=== PATIENT | female | born 1965 | race Caucasian/White ===

== ENCOUNTER 2024-04-08 07:09 | Observation (INO) ==
--- NOTE | 2024-03-09 16:08 | PAT Medication Instructions ---
Medication Instructions Date of Service March 09, 2024 Home Medications acetaminophen 325 mg tablet (Tylenol) 325 mg PO QID PRN multivitamin 1 tab PO DAILY DO NOT take the morning of surgery multivitamin 1 tab PO DAILY Take morning of surgery With a small sip of water, OTHERWISE NOTHING TO EAT OR DRINK AFTER MIDNIGHT: acetaminophen 325 mg tablet (Tylenol) 325 mg PO QID PRN(if needed) Take evening before surgery acetaminophen 325 mg tablet (Tylenol) 325 mg PO QID PRN(if needed) Other Notes If you have any questions please call us at [phone] or [phone] or [phone] or [phone]
--- NOTE | 2024-03-11 12:59 | Anesthesiology Consultation ---
Date of Service March 11, 2024 Assessment & Plan (1) Encounter for pre-operative examination: - Infectious disease screening: Per assessment on 03/11/24: No known recent infectious disease contacts or current infectious disease symptoms. - Outpatient joint assessment: Pt currently scheduled for inpatient pathway. If surgeon requests review for outpatient joint pathway, patient is an acceptable candidate for outpatient joint program from anesthesia standpoint pending surgeon's office assessment that patient is motivated, has good support and completes [facility] Day Joint Program preop requirements. - Patient acceptable risk for surgery pending upcoming PCP office visit note (Dr. Jimenez, appt 03/20). Chart Review Chart Review: Patient seen in Pre Admission Testing Teaching & Discussion Pre-Anesthesia Teaching/Discussion Notes: Instructed NPO after midnight before surgery,except medications with 15 cc of water. Medication instructions provided according to the PAT guidelines. History Surgery Operation Date: 04/08/24 08:55 Proposed Procedures p Right Total Knee Arthroplasty - Brodie Borden MD Height/Weight Height: 5 ft 3 in Weight: 99.7 kg Allergies Allergy/AdvReac Type Severity Reaction Status Date / Time Sulfa (Sulfonamide Allergy Unknown Fever, Verified 03/10/24 12:44 Antibiotics) hives, abnormal LFTs Medications Home Medications Medication Instructions Recorded Confirmed Last Taken acetaminophen 325 mg tablet 325 mg PO QID PRN Pain 03/06/24 03/06/24 Unknown (Tylenol) multivitamin 1 tab PO DAILY 03/06/24 03/06/24 Unknown Past Medical History Medical History (Updated 03/11/24 @ 16:03 by Bernadette Sethi) DJD (degenerative joint disease) of knee Obesity Osteoarthritis Overactive bladder Exercise / Class Metabolic Activity II 4-5 Yardwork/Stairs/Walk up hill Past Family History Family History Sister Diabetes Past Surgical History Surgical History History of arthroscopy R/L knees History of cholecystectomy History of colonoscopy History of esophagogastroduodenoscopy (EGD) History of hysterectomy History of repair of rotator cuff right History of surgery on right wrist History of tooth extraction History of total knee replacement left Past Anesthesia History No Hx of Anesthesia Complications and No Family Hx of Anesthesia Complications History of PONV No Hx of Motion Sickness and History of PONV (Remote) Social History Smoking Status: Never smoker Do You Dip or Chew Tobacco: No Hx Alcohol Use: Yes Alcohol type: beer alcohol intake frequency: holidays/special occasions only Hx Substance Use: No substance use type: does not use Review of Systems Patient denies chest pain, shortness of breath, dyspnea on exertion, fever, chills, cough, wheezing, palpitations. Physical Exam Vital Signs BP 116/77 P 77 TEMP 98.0 SP02 98%RA RESP 16 Physical Full cervical extension range of motion. Full TMJ range of motion. TMD >3.5 finger breaths Mallampati Score II Dentition: intact, + crowns Lungs: clear throughout to auscultation Cardiac: regular rate and rhythm, no murmurs noted Spine: normal Carotid arteries: negative bruit Extremities: no LE edema Lab Results Anesthesia Preop Results Results Anesthesia Widget: WBC 3.71 K/ul (4.8-10.8) L 03/11/24 Hgb 12.8 g/dl (12.0-16.0) 03/11/24 Hct 38.4 % (37.0-47.0) 03/11/24 Plt 230 K/uL (130-400) 03/11/24 Na 139 mmol/L (136-145) 03/11/24 K 3.8 mmol/L (3.5-5.1) 03/11/24 Cl 105 mmol/L (98-107) 03/11/24 CO2 29 mmol/L (21-32) 03/11/24 BUN 14 mg/dl (6-23) 03/11/24 Creat 1.20 mg/dl (0.6-1.2) 03/11/24 Glucose Level 110 mg/dl (70-99(Fasting)) H 03/11/24 PT 10.3 Seconds (9.0-12.0) 03/11/24 PTT 26 Seconds (21-31) 03/11/24 INR 0.9 (0.9-1.1) 03/11/24 Urine Color Yellow 03/11/24 Urine Appearance Clear (Clear) 03/11/24 Urine pH 5.5 (4.5-7.5) 03/11/24 Urine Specific [place] 1.022 (1.000-1.030) 03/11/24 Urine Protein Negative (Negative) 03/11/24 Urine Glucose (UA) Negative (Negative) 03/11/24 Urine Ketones Trace (Negative) H 03/11/24 Urine Blood Negative (Negative) 03/11/24 Urine Nitrite Negative (Negative) 03/11/24 Urine Bilirubin Negative (Negative) 03/11/24 Urine Urobilinogen Negative (Negative) 03/11/24 Urine Leukocyte Esterase Negative (Negative) 03/11/24 Blood Type O Positive 03/11/24 Antibody Screen NEGATIVE 03/11/24 Testing Electrocardiogram Date: 03/11/24 NSR at 79bpm. "Normal ECG" Chest X-Ray Date: 03/11/24 FINDINGS: Lung volumes are normal. Lungs are clear. There is no pneumothorax or pleural effusion. Cardiac size is normal. Mediastinal contours are normal. There is no evidence for pulmonary edema. IMPRESSION: No acute cardiopulmonary findings.
--- NOTE | 2024-04-06 19:32 | History & Physical Report ---
Date of Service April 06, 2024 Assessment & Plan (1) Osteoarthritis of right knee: Plan: Right knee osteoarthritis with failed conservative management. Radiographs do not show typical [id number] osteoarthritis but she did have previous arthroscopic surgery demonstrated grade 4 patellofemoral osteoarthritis. She has had extensive conservative management with multiple aspiration and injection of steroids and continues to have recurrent effusion and chronic pain. Patient had good success with similar condition on her left knee and has some mild chronic synovitis but good pain relief and function with a left knee replacement. Patient wants proceed with the right total knee replacement at this time. Osteoarthritis type: primary Qualified Code(s): M17.11 - Unilateral primary osteoarthritis, right knee (2) Knee effusion, right: History of Present Illness Primary Care Provider: Sridhar Jimenez DO Patient denies headaches, sweats, fevers, chills, double vision, blurred vision, cough, sore throat, dysphagia, chest pain, sob, wheezing, n/v/d/c, numbness, tingling, fatigue, urinary symptoms, mood disorders. ROS positive for irregular heartbeat, arthritis. Allergies Allergy/AdvReac Type Severity Reaction Status Date / Time Sulfa (Sulfonamide Allergy Unknown Fever, Verified 03/10/24 12:44 Antibiotics) hives, abnormal LFTs Home Medications Medication Instructions Recorded Confirmed Type acetaminophen 325 mg tablet 325 mg PO QID PRN Pain 03/06/24 03/06/24 History (Tylenol) multivitamin 1 tab PO DAILY 03/06/24 03/06/24 History Past Med/Surg History Problem List (Updated 04/06/24 @ 19:38 by Brodie Borden MD) Knee effusion, right Osteoarthritis of right knee Encounter for pre-operative examination DJD (degenerative joint disease) of knee (Acute) Medical History Obesity Osteoarthritis Overactive bladder DJD (degenerative joint disease) of knee Surgical History History of hysterectomy History of surgery on right wrist History of total knee replacement left History of arthroscopy R/L knees History of repair of rotator cuff right History of esophagogastroduodenoscopy (EGD) History of colonoscopy History of cholecystectomy History of tooth extraction Family History Sister Diabetes Social History Smoking Status: Never smoker Second Hand Exposure: No; Do You Dip or Chew Tobacco: No; Tobacco Cessation Education Requested by Patient: No Hx Alcohol Use: Yes Alcohol type: beer Hx Substance Use: No Preferred Language: Zambian Communication Ability: Effective Computer Trainer Required: No Beliefs That Will Affect Care: None Current Living Situation: Spouse Other Information That Helps Us Care for You: No Feels Safe at Home: Yes Safety Concerns: Feels Safe At This Time Assistive Devices: Contacts and Glasses Review of Systems All systems reviewed & are unremarkable except as noted in HPI & below Physical Exam Constitutional: WD/WN, vitals as above Respiratory: normal respiratory effort; no respiratory distress Cardiovascular: Rate/Rhythm: regular rate and regular rhythm Musculoskeletal: Right knee exam demonstrates a large knee effusion with significant patellofemoral crepitation no instability and 0 through 130 degrees range of motion with some mild valgus alignment of the knee. Left knee has a scar from total knee replacement with mild effusion neutral alignment good stability and no pain. Distal circulation sensorimotor exam intact. Skin: no rashes, warm and dry Neurologic: normal touch/pain/proprioception Psychiatric: A+Ox3, euthymic affect Results & Data Diagnostic Findings X-rays right knee demonstrate advanced patellofemoral osteoarthritis with moderately advanced tibiofemoral medial and lateral compartment osteoarthritis. [employer] left knee replacement.
[~2024-04-08 07:09] MED LIST: BUPIVACAINE 0.5 % 5 MG/1 ML PF 10ML VIAL ONE; ROPIVACAINE 0.5% 5 MG/ML 30 ML VIAL ONE
[2024-04-08] MEDS ORDERED: fentaNYL citrate PF 100 MCG/2 ML VIAL ONE (07:22)
[2024-04-08] MEDS ORDERED: MIDAZOLAM HCL 1 MG/ML 2ML VIAL ONE (07:23)
[2024-04-08] MEDS ORDERED: PROPOFOL IV EMULSION 10 MG/ML 20 ML VIAL IV ONE ×2 (07:25→11:44)
--- NOTE | 2024-04-08 07:28 | History & Physical Bridge Note ---
Date of Service April 08, 2024 History & Physical Bridge Note I have examined the patient, reviewed the History & Physical and in the interval since the performance of the History & Physical I have noted the following changes of clinical significance: no changes noted
[2024-04-08] MEDS: LR 500ML BOLUS, THEN 15ML/HR IV SCH (07:42)
[2024-04-08] MEDS: dexAMETHasone**PF** 10 MG/ML VIAL IV SCH (07:42)
[2024-04-08] MEDS: METOCLOPRAMIDE HCL 10 MG TABLET PO SCH (07:43)
[2024-04-08] MEDS: ACETAMINOPHEN 500 MG TAB PO SCH ×2 (07:43→14:10)
[2024-04-08] MEDS: FAMOTIDINE 20 MG TAB PO SCH (07:43)
[2024-04-08] MEDS: GABAPENTIN 600 MG DOSE PO SCH (07:43)
[2024-04-08] MEDS: LR 60ML/HR IV SCH (07:43)
[2024-04-08] MEDS ORDERED: ONDANSETRON INJ 2 MG/ML 2 ML VIAL IV PRN ×2 (08:17→13:47)
[2024-04-08] MEDS ORDERED: fentaNYL citrate PF 100 MCG/2 ML VIAL IV PRN (08:17)
[2024-04-08] MEDS ORDERED: ePHEDrine sulfate 50 MG/ML AMP IV PRN (08:17)
[2024-04-08] MEDS ORDERED: ATROPINE SULFATE 0.1 MG/ML 10ML SYR IV PRN (08:17)
[2024-04-08] MEDS: TRANEXAMIC ACID 1,000 MG **IV Pre-op IV SCH (09:33)
[2024-04-08] MEDS: ceFAZolin 2000MG 2,000 MG/15 ML SYR IV SCH ×2 (09:50→16:05)
[2024-04-08] MEDS ORDERED: ONDANSETRON INJ 2 MG/ML 2 ML VIAL ONE (10:17)
[2024-04-08] MEDS ORDERED: PHENYLEPHRINE 100MCG/ML 10ML SYR IV ONE (10:21)
[2024-04-08] MEDS: TRANEXAMIC ACID 1,000 MG **IV Intra-op IV SCH (11:21)
[2024-04-08] MEDS: ROPIV 0.5% 246mg, Ketorolac 30mg, EPINEPHrine 0.5mg in NSS INFIL SCH (11:22)
[2024-04-08] MEDS: ORTHO JOINT ANESTHETIC ONE (11:22)
--- NOTE | 2024-04-08 11:34 | Post Operative Brief Note ---
Immediate Post Op Note Date of Surgery April 08, 2024 Pre & Post Diagnosis Operation Date: 04/08/24 09:00 Pre-Op Diagnosis: Right Knee Osteoarthritis Post-Op Diagnosis: Right Knee Osteoarthritis I identified the patient and participated in the time-out.: Yes Procedure Operation Date: 04/08/24 09:00 Actual Procedures p Right Total Knee Arthroplasty(Right), jeimy and Acticoat superficial wound VAC application- Brodie Borden MD Surgeon Brodie Borden MD Remanufacturing Technician Juancarlos BELLA Estimated Blood Loss 5 Findings Consistent with Post-Op Diagnosis Specimens Bone cuts Drains Hemovac Drain Anesthesia Type MAC Spinal Regional Complications none Disposition Disposition: Recovery Room Overlapping Procedure I was present for: the critical portions of procedure.
--- NOTE | 2024-04-08 12:33 | XRay Report ---
XR knee RT 1 or 2V routine HISTORY: 59 years-old Female Surgical Post Op right knee arthroplasty COMPARISON: None TECHNIQUE: 2 views of the right knee FINDINGS: Total joint arthroplasty with patellar resurfacing. Anterior midline skin gayla with expected posto perative soft tissue swelling and deep tissue air with surgical drainage catheter. No acute fracture or unexpected opaque foreign bodies. IMPRESSION: Total joint arthroplasty with expected postoperative changes ACT 112: Negative or not required by law. The above report was generated using voice recognition software. It may contain grammatical, syntax o r spelling errors. Electronically signed by: Gabe Mckinley M.D. 04/08/2024 12:31 PM
--- NOTE | 2024-04-08 13:00 | Anesthesiology Progress Note ---
Date of Service April 08, 2024 Anesthesia Post Procedure Vital Signs Vital Signs: Temp Pulse Pulse Resp BP Pulse Ox O2 Del Method 04/08/24 12:10 36.7 C 89 16 89/59 L 100 Oxymask 04/08/24 07:33 36.4 C L 65 20 107/62 99 Room Air O2 Flow Rate 04/08/24 12:10 9 04/08/24 07:33 Notes Mental Status: alert / awake / arousable Patient Amnestic to Procedure: Yes Nausea / Vomiting: adequately controlled Pain: adequately controlled Airway Patency, RR, SpO2: stable & adequate BP & HR: stable & adequate Hydration State: stable & adequate Neuraxial Anesthesia: was administered and sensory block is resolving Anesthetic Complications: no major complications apparent
[2024-04-08] MEDS ORDERED: KETOROLAC TROMETHAMINE 15 MG/ML VIAL IV PRN (13:47)
[2024-04-08] MEDS ORDERED: MAGNESIUM HYDROXIDE SUSP 30 ML UDC PO PRN (13:47)
[2024-04-08] MEDS ORDERED: NALOXONE HCL 0.4 MG/1 ML VIAL/CARP IV PRN (13:47)
[2024-04-08] MEDS ORDERED: METOCLOPRAMIDE HCL INJ 5 MG/ML 2 ML VIAL IV PRN (13:47)
[2024-04-08] MEDS ORDERED: ALUMINUM/MAGNESIUM SUSP 30 ML UDC PO PRN (13:47)
[2024-04-08] MEDS ORDERED: HYDROmorphone INJ 0.5 MG/0.5 ML SYR IV PRN (13:47)
[2024-04-08] MEDS ORDERED: bisacodyL 10 MG SUPP PR PRN (13:47)
[2024-04-08] MEDS ORDERED: diphenhydrAMINE Capsule 25 MG CAP PO PRN (13:47)
--- OUTSIDE RECORDS SUMMARY | 2024-04-08 13:52 | External Medical Summary | Summary of Care ---
Author Name Unknown Organization [facility] Address [address] [place] [address] Phone [phone] Care Team Providers Care Manager Fixed Income Name Role Phone Sridhar Jimenez DO Primary Care Provider Encounter Details Date Type Department Care Team (Late st Contact Info) Description 03/02/2024 Orders Only Outcomes Research Department [address] [place] [address] Christy Jean CHRA [facility] Other*[id number] Allergies Active Allergy Reactions Criticality Noted Date Comments Sulfa Antibiotics 04/24/2011 documented as of this encounter (statuses as of 03/02/2024) Medications Medication Sig Dispensed Refills Start Date End Date Status Ciprofloxacin HCl 500 MG Oral Tablet (Cipro) Take 1 Tablet by mouth in the morning and 1 Tablet before bedtime. 8 Tablet 02/17/2024 Active documented as of this encounter (statuses as of 03/02/2024) Active Problems Problem Noted Date Diagnosed Date Primary osteoarthritis of right knee 02/28/2023 Generalized osteoarthritis 01/29/2020 Abdominal pain, right lower quadrant Other nonspecific abnormal finding Overview: abn CT enteroclysis Gastritis and gastroduodenitis H. pylori infection Arthropathy Palpitations documented as of this encounter (statuses as of 03/02/2024) Immunizations Name Administration Dates Next Due COVID-19 mRNA, LNP-s, No Pre serve, 2-Dose Series (Moderna) 09/16/2020,08/19/2020 COVID-19, mRNA, LNP-s, PF, B ooster, 100mcg/0.5mg (Moderna) 04/27/2021 documented as of this encounter Social History Tobacco Use Types Packs/Day Years Used Date Smoking Tobacco: Never Smokeless Tobacco: Never Alcohol Use Standard Drinks/Week Comments Yes 0 (1 standard drink = 0.6 oz pur e alcohol) occ Utilities Answer Date Recorded Do you have trouble paying y our heating, water, or electric bill? (Adult - for ages 18 years and over) Not on file 12/31/2023 Is your family able to pay t he heat, water, or electric bill? (Household - for ages 0-17 years) Not on file 12/31/2023 Does your family have access to good internet? (Household - for ages 0-17 years) Not on file 12/31/2023 Social Connections Answer Date Recorded How often do you feel lonely or isolated from those around you? (Adult - for ages 18 years and over) Not on file 12/31/2023 Sex and Gender Information Value Date Recorded Sex Assigned at Female 07/29/2022 6:19 PM EST Gender Identity Female 07/29/2022 6:19 PM EST Sexual Orientation Straight 07/29/2022 6: 19 PM EST Job Start Date Occupation Industry Not on file Not on file Not on file documented as of this encounter Plan of Treatment Upcoming Encounters Date Type Department Care Team (Late st Contact Info) Description 07/21/2024 11:00 AM EST Office Visit Urology, [facility] [address] [facility] [place] [address] Bam Jamison MD [address] [place] [address] Scheduled Orders Name Type Priority Associated Diagnoses Orde r Schedule MYCODE SUBSEQUENT ADULT Lab Routine [facility] Other*[id number] Every 6 Months for 2 Occurrences starting 03/02/2024 until 03/22/2025 Health Maintenance Due Date Last Done Comments Lipid Panel 1963 Depression Screening 1975 HIV Screening 1978 Hepatitis C Screening 1981 DTaP,Tdap,and Td Vaccines (1 - Tdap) 1982 Mammogram 2003 Cologuard 2008 Colonoscopy 2008 Colorectal Cancer Screening 2008 Fecal Occult Blood Test 2008 Sigmoidoscopy 2008 Zoster Vaccines (1 of 2) 2013 COVID-19 Vaccine (2022-2 4 season) 2023 04/27/2021, 09/16/2020, 08/19/2020 Influenza Vaccine (FLU shot) (#1) 2024 04/30/2023, 04/02/2018 HPV (Gardasil) Vaccine Aged Out No lo nger eligible based on patient's age to complete this topic Hepatitis B Vaccine Aged Out No longe r eligible based on patient's age to complete this topic MENINGOCOCCAL (MENACTRA/MENVEO) Aged Out No longer eligible b ased on patient's age to complete this topic Pneumococcal Vaccine: Pediatrics (0 to 5 Years) and At-Risk Patients (6 to 64 Years) Aged Out No longer eligible b ased on patient's age to complete this topic documented as of this encounter Medical Devices Not on filedocumented as of this encounter Visit Diagnoses Diagnosis [facility] Other*[id number] documented in this encounter Care Teams Manager Fixed Income Relationship Specialty Start Date End Date Sridhar Jimenez DO [address] [place] [address] PCP - General Family Medicine 09/29/19 documented as of this encounter
--- OUTSIDE RECORDS SUMMARY | 2024-04-08 13:52 | External Medical Summary | Summary of Care ---
Author Name Unknown Organization [facility] Address [address] [place] [address] Phone [phone] Care Team Providers Care Data Review Specialist Name Role Phone Deborah Arango DO Primary Care Provider Reason for Visit * Reason Comments Cystoscopy Encounter Details Date Type Department Care Team (Late st Contact Info) Description 02/17/2024 1:00 PM EDT Office Visit Urology, [facility] [address] [facility] [place] [address] Vannesa Onofre MD [address] [place] [address] Overactive bladder*; Urge incontinence of urine Allergies Active Allergy Reactions Criticality Noted Date Comments Sulfa Antibiotics 04/24/2011 documented as of this encounter (statuses as of 03/23/2024) Medications Medication Sig Dispensed Refills Start Date End Date Status Ciprofloxacin HCl 500 MG Oral Tablet (Cipro) Take 1 Tablet by mouth in the morning and 1 Tablet before bedtime. 8 Tablet 02/17/2024 Active Hospital, Clinic, or Other Facility Administered Medication Ordered Dose Route Frequency Start Date End Date Status ciprofloxacin (Cipro) tab 500 mgIndications:Overactive bladder,Urge incontinence of urine 500 mg OR ONCE 02/17/2024 02/17/2024 Ended botulinum toxin type a (Botox) inj 10 UnitsIndications:Overactive bladder,Urge incontinence of urine 10 Units IM ONCE 02/17/2024 02/18/2024 Ended botulinum toxin type a (Botox) 100 Units in sodium chloride 0.9 % 10 mL injIndications:Overactive bladder,Urge incontinence of urine 100 Units IM ONCE 02/25/2024 02/25/2024 Ended botulinum toxin type a (Botox) inj 10 UnitsIndications:Overactive bladder,Urge incontinence of urine 10 Units IM ONCE 03/18/2024 03/23/2024 Ended documented as of this encounter (statuses as of 03/23/2024) Active Problems Problem Noted Date Diagnosed Date Primary osteoarthritis of right knee 02/28/2023 Generalized osteoarthritis 01/29/2020 Abdominal pain, right lower quadrant Other nonspecific abnormal finding Overview: abn CT enteroclysis Gastritis and gastroduodenitis H. pylori infection Arthropathy Palpitations documented as of this encounter (statuses as of 03/23/2024) Immunizations Name Administration Dates Next Due COVID-19 [...] on file documented as of this encounter Progress Notes * Vannesa Onofre MD - 02/17/2024 1:11 PM EDT [id number] PCP: DEBORAH ARANGO [address] [place] [address] [phone] Alma Thurston is a 58 year old female, who presents for intravesical Botox injection. She notes mild urgency, worse with intake of certain fluids. Past notes reviewed. Good response to Botox so far. Urinary incontinence: Present for years. Presented to [facility] November 2021. Previous trials of Detrol, Ditropan, Enablex and Oxytrol. Failed VESIcare and Myrbetriq combination therapy. Denies significant history with urinary tract infection. Patient is using 1 ppd. Worse with alcohol intake. Little improvement with IC diet. Previous trial of pelvic floor PT, improved capacity. Botox injected June 2023, September 2023, Jan 2024. No current outpatient medications on file. No current facility-administered medications for this visit. Review of patient's allergies indicates: Allergen Reactions Sulfa Antibiotics Social History: Social History Tobacco Use Smoking status: Never Smokeless tobacco: Never Substance Use Topics Alcohol use: Yes Comment: occ Vaping/E-Cigarette Use Vaping/E-Cigarette Substances Vaping/E-Cigarette Devices Family History Problem Relation Name Age of Onset Hypertension Mother and hyperlipidemia Diabetes Father Cancer Brother stage 4 lymph nodes/lungs/brain Hypertension Sister Gastro-intestinal disorder Sister diverticulitis No Past Hx Daughter Past Surgical History: Procedure Laterality Date FOREARM/WRIST SURGERY NEC x 4 right wrist REMOVE GALLBLADDER TOTAL ABD HYSTERECTOMY W/WO REMOVAL OF TUBE(S) ovaries intact Past Medical History: Diagnosis Date Abdominal pain, right lower quadrant Arthropathy Diaphragmatic hernia Gastritis and gastroduodenitis H. pylori infection treated Other nonspecific abnormal finding abn CT enteroclysis Palpitations Patient Active Problem List Diagnosis Abdominal pain, right lower quadrant Other nonspecific abnormal finding Gastritis and gastroduodenitis H. pylori infection Arthropathy Palpitations Generalized osteoarthritis Primary osteoarthritis of right knee Female : (+) see HPI Cystoscopy Procedure Note: Patient was properly identified and appropriate consent was confirmed. Risks and benefits of the procedure were reviewed and the patient was prepped and draped in the standard fashion for the procedure. A well lubricated 16 Turkish flexible cystoscope was introduced through the meatus into the urethra. Urethra demonstrated no abnormalities. Bladder neck was visualized and bladder was entered. Sterile saline irrigation was used to distend the bladder which was noted to have no tumors, stones or mucosal abnormalities with grade 2 trabeculation. Bladder was completely inspected including retroflexion of the scope. Ureteral orifices were noted to be in the normal anatomic position bilaterally and effluxing clear urine. Botox was injected on the posterior wall taking care to avoid ureteral orifices. Four rows of 5 columns each, 0.5 mL for a total of 10 mL of sterile saline with 100 mg of Botox, minimal bleeding being present. After this was completed the cystoscope was removed. Patient tolerated the procedure well without complications or difficulties. Media Analytics Manager was present for entire procedure. Perioperative Cipro was provided. Impression/Plan: 58-year-old female with overactive bladder, improved with Botox. We are pleased with the patient's results. Will cover with short course of ciprofloxacin. The patient for symptom check in 4 months. Hopefully, we can space out injections further depending on symptom response in the future. Vannesa Onofre MD 1:11 PM 02/17/2024 documented in this encounter Nursing Notes * Beverly Boone LPN - 02/17/2024 1:08 PM EDT Patient presents for botox. Consent signed. Patient's skin was prepped with hibiclens, and 2% lidocaine jelly was inserted into urethra for cystoscopy. Patient tolerated well. documented in this encounter Miscellaneous Notes * Addendum Note - Vannesa Onofre MD - 03/18/2024 7:15 AM EDTAddended by: VANNESA ONOFRE on: 03/18/2024 07:15 AM Modules accepted: Orders * Addendum Note - Vannesa Onofre MD - 02/25/2024 7:47 AM EDTAddended by: VANNESA ONOFRE on: 02/25/2024 07:47 AM Modules accepted: Orders * Addendum Note - Beverly Boone LPN - 02/17/2024 2:10 PM EDTAddended by: BEVERLY BOONE on: 02/17/2024 02:10 PM Modules accepted: Orders documented in this encounter Plan of Treatment Upcoming Encounters Date Type Department Care Team (Late st Contact Info) Description 07/21/2024 11:00 AM EST Office Visit Urology, [facility] [address] [facility] [place] [address] Vannesa Onofre MD [address] [place] [address] Scheduled Orders Name Type Priority Associated Diagnoses Orde r Schedule CYSTOURETHROSCOPY, INJ FOR CHEMODENERVATION Procedures Routine Overactive bladder Urge incontinence of urine Ordered: 02/17/2024 Health Maintenance Due Date Last Done Comments Lipid Panel 1963 Depression Screening 1975 HIV Screening 1978 Hepatitis C Screening 1981 DTap/Tdap Vaccines (1 - Tdap) 1982 Mammogram 2003 Cologuard 2008 Colonoscopy 2008 Colorectal Cancer Screening 2008 Fecal Occult Blood Test 2008 Sigmoidoscopy 2008 Zoster Vaccines (1 of 2) 2013 COVID-19 Vaccine (4 - 2022-2 4 season) 2024 04/27/2021, 09/16/2020, 08/19/2020 Influenza Vaccine (FLU shot) [...] as of this encounter Visit Diagnoses Diagnosis Overactive bladder- Primary Hypertonicity of bladder Urge incontinence of urine Urge incontinence documented in this encounter Administered Medications Inactive Administered Medications - up to 3 most recent administrations Medication Order MAR Action Action Date Dose Rate Site botulinum toxin type a (Botox) inj 10 Units 10 Units, Intramuscular, ONCE, On 03/18/24 at 0745, For 1 dose, Prior to injection, reconstitute botox vial with PF sodium chloride 0.9% to desired concentration. Given 03/23/2024 4:14 PM EDT 10 Units Other-Specify ciprofloxacin (Cipro) tab 500 mg 500 mg, Oral, ONCE, On 02/17/24 at 1400, For 1 dose, Hold antacids and iron for 3-4 hours before and after administration. Given 02/17/2024 2:10 PM EDT 500 mg documented in this encounter Care Teams Data Review Specialist Relationship Specialty Start Date End Date Deborah Arango DO [address] [place] [id number] PCP - General Family Medicine 09/29/19 documented as of this encounter
--- OUTSIDE RECORDS SUMMARY | 2024-04-08 13:52 | External Medical Summary | Summary of Care ---
Author Name Unknown Organization [facility] Address [address] [place] [address] Phone [phone] Care Team Providers Care Solvent Process Extractor Operator Name Role Phone Deborah Arango DO Primary Care Provider Reason for Visit * Reason Comments Cystoscopy Encounter Details Date Type Department Care Team (Late st Contact Info) Description 02/17/2024 1:00 PM EDT Office Visit Urology, [facility] 132 [facility] [place] [address] Vannesa Onofre MD [address] [place] [address] [...] 100 Units IM ONCE 02/25/2024 02/25/2024 Ended documented as of this encounter (statuses [...] Onofre MD - 02/17/2024 1:11 PM EDT [id number] PCP: DEBORAH ARANGO [address] [place] [address] Alma Thurston is a 58 year old female, who presents for intravesical Botox injection. She notes mild urgency, worse with intake of certain fluids. Past notes reviewed. Good response to Botox so far. Urinary incontinence: Present for years. Presented to [facility] November 2021. Previous trials of Detrol, [...] for the procedure. A well lubricated 16 [place] African flexible cystoscope was introduced through the meatus [...] the procedure well without complications or difficulties. Social Psychologist was present for entire procedure. Perioperative Cipro [...] 07/21/2024 11:00 AM EST Office Visit Urology, [facility] [address] [facility] [place] [address] Vannesa Onofre MD [address] [place] [address] Scheduled Orders Name Type Priority Associated Diagnoses [...] COVID-19 Vaccine (4 - 2022-2 4 season) 2023 04/27/2021, 09/16/2020, 08/19/2020 Influenza [...] MAR Action Action Date Dose Rate Site ciprofloxacin (Cipro) tab 500 mg 500 mg, Oral, ONCE, On Sat02/17/24 at 1400, For 1 dose, Hold antacids and iron for 3-4 hours before and after administration. Given 02/17/2024 2:10 PM EDT 500 mg documented in this encounter Care Teams Solvent Process Extractor Operator Relationship Specialty Start Date End Date Deborah Arango DO [address] [place] [id number] PCP - General Family Medicine 09/29/19 documented as of this encounter
--- OUTSIDE RECORDS SUMMARY | 2024-04-08 13:52 | External Medical Summary | Summary of Care ---
Author Name Unknown Organization [facility] Address [address] [place] [address] Phone [phone] Care Team Providers Care Dialysis Technician Name Role Phone Deborah Arango DO Primary Care Provider Reason for Visit * Reason Comments Cystoscopy Encounter Details Date Type Department Care Team (Late st Contact Info) Description 02/17/2024 1:00 PM EDT Office Visit Urology, [facility] [address] [facility] [place] [address] Vannesa Onofre MD [address] [place] [place] [address] Overactive bladder*; Urge incontinence of urine Allergies Active Allergy Reactions Criticality Noted Date Comments Sulfa Antibiotics 04/24/2011 documented as of this encounter (statuses as of 03/18/2024) Medications Medication Sig Dispensed Refills Start Date End Date Status Ciprofloxacin HCl 500 MG Oral Tablet (Cipro) Take 1 Tablet by mouth in the morning and 1 Tablet before bedtime. 8 Tablet 02/17/2024 Active Hospital, Clinic, or Other Facility Administered Medication Ordered Dose Route Frequency Start Date End Date Status botulinum toxin type a (Botox) inj 10 UnitsIndications:Overactive bladder,Urge incontinence of urine 10 Units IM ONCE 03/18/2024 03/18/2024 Active ciprofloxacin (Cipro) tab 500 mgIndications:Overactive bladder,Urge incontinence [...] as of this encounter (statuses as of 03/18/2024) Active Problems Problem Noted Date Diagnosed Date Primary osteoarthritis of right knee 02/28/2023 Generalized osteoarthritis 01/29/2020 Abdominal pain, right lower quadrant Other nonspecific abnormal finding Overview: abn CT enteroclysis Gastritis and gastroduodenitis H. pylori infection Arthropathy Palpitations documented as of this encounter (statuses as of 03/18/2024) Immunizations Name Administration Dates Next Due COVID-19 [...] Onofre MD - 02/17/2024 1:11 PM EDT [id number] PCP: DEBORAH ARANGO [address] [place] [address] [phone] Alma Thurston is a 58 year old female, who presents for intravesical Botox injection. She notes mild urgency, worse with intake of certain fluids. Past notes reviewed. Good response to Botox so far. Urinary incontinence: Present for years. Presented to [facility] November 2021. Previous trials of Detrol, [...] for the procedure. A well lubricated 16 Bahamian flexible cystoscope was introduced through the meatus [...] the procedure well without complications or difficulties. Plant Mechanic was present for entire procedure. Perioperative Cipro [...] 07/21/2024 11:00 AM EST Office Visit Urology, [facility] [address] [facility] [place] [address] Vannesa Onofre MD [address] [place] [address] Scheduled Orders Name Type Priority Associated Diagnoses [...] mg documented in this encounter Care Teams Dialysis Technician Relationship Specialty Start Date End Date Deborah Arango DO [address] [place] [address] PCP - General Family Medicine 09/29/19 documented as of this encounter
--- OUTSIDE RECORDS SUMMARY | 2024-04-08 13:52 | External Medical Summary | Summary of Care ---
Author Name Unknown Organization [facility] Address [address] [place] [address] Phone [phone] Care Team Providers Care Video Game Engineer Name Role Phone Deborah Arango DO Primary Care Provider Reason for Visit * Reason Comments Cystoscopy Encounter Details Date Type Department Care Team (Late st Contact Info) Description 02/17/2024 1:00 PM EDT Office Visit Urology, [facility] [address] [facility] [place] [address] Vannesa Onofre MD [address] [place] [address] Overactive bladder*; Urge incontinence of urine Allergies Active Allergy Reactions Criticality Noted Date Comments Sulfa Antibiotics 04/24/2011 documented as of this encounter (statuses as of 03/26/2024) Medications Medication Sig Dispensed Refills Start Date End Date Status Ciprofloxacin HCl 500 MG Oral Tablet (Cipro) Take 1 Tablet by mouth in the morning and 1 Tablet before bedtime. 8 Tablet 02/17/2024 Active Hospital, Clinic, or Other Facility Administered Medication Ordered Dose Route Frequency Start Date End Date Status ciprofloxacin (Cipro) tab 500 mgIndications:Overact jacobo bladder,Urge incontinence of urine 500 mg OR ONCE 02/17/2024 02/17/2024 End ed botulinum toxin type a (Botox) inj 10 UnitsIndications:Over active bladder,Urge incontinence of urine 10 Units IM ONCE 02/17/2024 02/18/2024 Dis continued botulinum toxin type a (Botox) 100 Units in sodium chloride 0.9 % 10 mL injIndications:Overac tive bladder,Urge incontinence of urine 100 Units IM ONCE 02/25/2024 02/25/2024 End ed botulinum toxin type a (Botox) inj 10 UnitsIndications:Over active bladder,Urge incontinence of urine 10 Units IM ONCE 03/18/2024 02/17/2024 End ed documented as of this encounter (statuses as of 03/26/2024) Active Problems Problem Noted Date Diagnosed Date Primary osteoarthritis of right knee 02/28/2023 Generalized osteoarthritis 01/29/2020 Abdominal pain, right lower quadrant Other nonspecific abnormal finding Overview: abn CT enteroclysis Gastritis and gastroduodenitis H. pylori infection Arthropathy Palpitations documented as of this encounter (statuses as of 03/26/2024) Immunizations Name Administration Dates Next Due COVID-19 [...] Onofre MD - 02/17/2024 1:11 PM EDT [id number] PCP: DEBORAH ARANGO [address] [place] [address] [phone] Alma Thurston is a 58 year old female, who presents for intravesical Botox injection. She notes mild urgency, worse with intake of certain fluids. Past notes reviewed. Good response to Botox so far. Urinary incontinence: Present for years. Presented to [facility] November 2021. Previous trials of [...] for the procedure. A well lubricated 16 Ugandan flexible cystoscope was introduced through the meatus [...] the procedure well without complications or difficulties. Assistant Federal Public Defender was present for entire procedure. Perioperative Cipro [...] encounter Miscellaneous Notes * Addendum Note - Beverly Boone LPN - 03/26/2024 9:57 AM EDTAddended by: BEVERLY BOONE on: 03/26/2024 09:57 AM Modules accepted: Orders * Addendum Note [...] 07/21/2024 11:00 AM EST Office Visit Urology, [facility] [address] [facility] [place] [address] Vannesa Onofre MD [address] [place] [address] [place] [address] Scheduled Orders Name Type Priority Associated Diagnoses [...] Vaccines (1 of 2) 2013 COVID-19 Vaccine (2023-2 5 season) 2024 04/27/2021, 09/16/2020, 08/19/2020 Influenza Vaccine [...] 10 Units 10 Units, Intramuscular, ONCE, On Sat03/18/24 at 0745, For 1 dose, Prior to injection, reconstitute botox vial with PF sodium chloride 0.9% to desired concentration. Given 02/17/2024 4:14 PM EDT 10 Units Other-Specify Given 02/17/2024 1:00 PM EDT 10 Units Ot her-Specify ciprofloxacin (Cipro) tab 500 mg 500 mg, Oral, ONCE, On 02/17/24 at 1400, For 1 dose, Hold antacids and iron for 3-4 hours before and after administration. Given 02/17/2024 2:10 PM EDT 500 m g documented in this encounter Care Teams Video Game Engineer Relationship Specialty Start Date End Date Deborah Arango DO [address] [place] [address] PCP - General Family Medicine 09/29/19 documented as of this encounter
--- OUTSIDE RECORDS SUMMARY | 2024-04-08 13:52 | External Medical Summary | Summary of Care ---
Author Name Unknown Organization [facility] Address [address] [place] [address] Phone [phone] Care Team Providers Care Investment Underwriter Name Role Phone Deborah Arango DO Primary Care Provider Reason for Visit * Reason Comments Cystoscopy Encounter Details Date Type Department Care Team (Late st Contact Info) Description 02/17/2024 1:00 PM EDT Office Visit Urology, [facility] [address] [facility] [place] [address] Vannesa Onofre MD [address] [place] [place] [address] Overactive bladder*; Urge incontinence of urine Allergies Active Allergy Reactions Criticality Noted Date Comments Sulfa Antibiotics 04/24/2011 documented as of this encounter (statuses as of 02/25/2024) Medications Medication Sig Dispensed Refills Start Date End Date Status Ciprofloxacin HCl 500 MG Oral Tablet (Cipro) Take 1 Tablet by mouth in the morning and 1 Tablet before bedtime. 8 Tablet 02/17/2024 Active Hospital, Clinic, or Other Facility Administered Medication Ordered Dose Route Frequency Start Date End Date Status botulinum toxin type a (Botox) 100 Units in sodium chloride 0.9 % 10 mL injIndications:Overactive bladder,Urge incontinence of urine 100 Units IM ONCE 02/25/2024 02/25/2024 Active ciprofloxacin (Cipro) tab 500 mgIndications:Overactive bladder,Urge incontinence of urine 500 mg OR ONCE 02/17/2024 02/17/2024 Ended botulinum toxin type a (Botox) inj 10 UnitsIndications:Overactive bladder,Urge incontinence of urine 10 Units IM ONCE 02/17/2024 02/18/2024 Ended documented as of this encounter (statuses as of 02/25/2024) Active Problems Problem Noted Date Diagnosed Date Primary osteoarthritis of right knee 02/28/2023 Generalized osteoarthritis 01/29/2020 Abdominal pain, right lower quadrant Other nonspecific abnormal finding Overview: abn CT enteroclysis Gastritis and gastroduodenitis H. pylori infection Arthropathy Palpitations documented as of this encounter (statuses as of 02/25/2024) Immunizations Name Administration Dates Next Due COVID-19 [...] Onofre MD - 02/17/2024 1:11 PM EDT [id number] PCP: DEBORHA ARANGO [address] [place] [address] Alma Thurston is a 58 year old female, who presents for intravesical Botox injection. She notes mild urgency, worse with intake of certain fluids. Past notes reviewed. Good response to Botox so far. Urinary incontinence: Present for years. Presented to [facility] November 2021. Previous trials of Detrol, [...] for the procedure. A well lubricated 16 Upper Sorbian flexible cystoscope was introduced through the meatus [...] the procedure well without complications or difficulties. Finance Insurance Manager was present for entire procedure. Perioperative [...] 07/21/2024 11:00 AM EST Office Visit Urology, [facility] [address] [facility] [place] [address] Vannesa Onofre MD [address] [place] [place] [address] Scheduled Orders Name Type Priority Associated Diagnoses [...] mg documented in this encounter Care Teams Investment Underwriter Relationship Specialty Start Date End Date Deborah Arango DO [address] [place] [id number] PCP - General Family Medicine 09/29/19 documented as of this encounter
--- OUTSIDE RECORDS SUMMARY | 2024-04-08 13:53 | External Medical Summary | Summary of Care ---
Author Name Unknown Organization [facility] Address [address] [place] [address] Phone [phone] Care Team Providers Care Power Lineman Technician Name Role Phone Deborah Arango DO Primary Care Provider Reason for Visit * Reason Comments Follow Up Encounter Details Date Type Department Care Team (Late st Contact Info) Description 01/30/2024 3:00 PM EDT Office Visit Urology Gio Alexis [address] [place] [id number] Bam Jamison MD [address] [place] [place] [address] Urge incontinence of urine*; Overactive bladder Allergies Active Allergy Reactions Criticality Noted Date Comments Sulfa Antibiotics 04/24/2011 documented as of this encounter (statuses as of 01/30/2024) Medications No known medicationsdocumented as of this encounter (statuses as of 01/30/2024) Active Problems Problem Noted Date Diagnosed Date Primary osteoarthritis of right knee 02/28/2023 Generalized osteoarthritis 01/29/2020 Abdominal pain, right lower quadrant Other nonspecific abnormal finding Overview: abn CT enteroclysis Gastritis and gastroduodenitis H. pylori infection Arthropathy Palpitations documented as of this encounter (statuses as of 01/30/2024) Immunizations Name Administration Dates Next Due COVID-19 [...] as of this encounter Progress Notes * Bam Jamison MD - 01/30/2024 3:00 PM EDT [id number] PCP: DEBORAH ARANGO [address] [place] [address] Alma Thurston is a 58 year old female, who presents for 4 month follow-up of her urinary incontinence. Past notes and Botox injections are reviewed. Patient's seems to have improved after her lastBotox injection but feels her urgency is returning. Patient notes she is pending her 2nd knee replacement in late March. Urinary incontinence: Present for years. Presented to [facility] November 2021. Previous trials of Detrol, Ditropan, Enablex and Oxytrol. Failed VESIcare and Myrbetriq combination therapy. Denies significant history with urinary tract infection. Patient is using 1 ppd. Worse with alcohol intake. Little improvement with IC diet. Previous trial of pelvic floor PT, improved capacity. Botox injected June 2023, September 2023. No current outpatient medications on file. No [...] Generalized osteoarthritis Primary osteoarthritis of right knee Constitutional: (-) fever and (-) chills ENT: (-) stridor Female : (+) see HPI Musculoskeletal: (+) knee pain/problems Psychiatry: (-) negative: no depression or anxiety Physical Exam Nursing note reviewed. Constitutional: General: She is not in acute distress. Appearance: Normal appearance. She is obese. She is not ill-appearing or toxic-appearing. HENT: Head: Normocephalic and atraumatic. Right Ear: External ear normal. Left Ear: External ear normal. Nose: Nose normal. Mouth/Throat: Mouth: Mucous membranes are moist. Eyes: Extraocular Movements: Extraocular movements intact. Cardiovascular: Pulses: Normal pulses. Pulmonary: Effort: Pulmonary effort is normal. No respiratory distress. Abdominal: Palpations: Abdomen is soft. Musculoskeletal: General: No deformity or signs of injury. Cervical back: Normal range of motion and neck supple. Skin: General: Skin is warm. Coloration: Skin is not pale. Neurological: General: No focal deficit present. Mental Status: She is alert and oriented to person, place, and time. Psychiatric: Mood and Affect: Mood normal. Behavior: Behavior normal. Impression/Plan: 58 yo female with urinary incontinence, improved with Botox Patient is quite pleased with her results. I am also pleased that she is obtaining a more durable incomplete response with her 2nd injection. Will try to proceed with the patient's 3rd intravesical Botox injection prior to her knee replacement. Hopefully, we will continue to see increasing symptom control associated with her injections as typical. Risks and benefits of continued Botox injection reviewed, patient understands risk of retention. Above content is personally reviewed. Bam Jamison MD 3:25 PM 01/30/2024 documented in this encounter Nursing Notes * Shi Fischer LPN - 01/30/2024 3:43 PM EDT Patient presents for routine follow up. States her urges are starting to get stronger. States she'sleaked urine only when sneezing a couple of times. documented in this encounter Plan of Treatment Health Maintenance Due Date Last Done Comments [...] as of this encounter Visit Diagnoses Diagnosis Urge incontinence of urine- Primary Urge incontinence Overactive bladder Hypertonicity of bladder documented in this encounter Care Teams Power Lineman Technician Relationship Specialty Start Date End Date Deborah Arango DO [address] [place] [address] PCP - General Family Medicine 09/29/19 documented as of this encounter
--- OUTSIDE RECORDS SUMMARY | 2024-04-08 13:53 | External Medical Summary | Summary of Care ---
Author Name Unknown Organization [facility] Address [address] [place] [address] Phone [phone] Care Team Providers Care Senior Safety Management Consultant Name Role Phone Sridhar Jimenez DO Primary Care Provider Reason for Visit * Reason Onset Date Comments Procedure 01/31/2024 Botox Encounter Details Date Type Department Care Team (Late st Contact Info) Description 01/31/2024 Telephone Urology Gio Alex[facility] [address] [place] [address] Bam Jamison MD [address] [place] [address] Procedure (Botox ) Allergies Active Allergy Reactions Criticality Noted Date Comments Sulfa Antibiotics 04/24/2011 documented as of this encounter (statuses as of 02/03/2024) Medications No known medicationsdocumented as of this encounter (statuses as of 02/03/2024) Active Problems Problem Noted Date Diagnosed Date Primary osteoarthritis of right knee 02/28/2023 Generalized osteoarthritis 01/29/2020 Abdominal pain, right lower quadrant Other nonspecific abnormal finding Overview: abn CT enteroclysis Gastritis and gastroduodenitis H. pylori infection Arthropathy Palpitations documented as of this encounter (statuses as of 02/03/2024) Immunizations Name Administration Dates Next Due COVID-19 [...] on file documented as of this encounter Miscellaneous Notes * Telephone Encounter - Ida Stewart LPN - 02/03/2024 10:[address] Jamison okjesús to be done in OR under sedation however I spoke with patient an she does not have a powder truck driver to transport home after surgery. Scheduled in recently added clinic at [facility] 02/16 at 1pm for 60 min botox procedure. Patient aware and agrees * Telephone Encounter - Shi Fischer LPN - 01/31/2024 4:10 PM EDT There is nothing available in that time frame as Botox needs a full 30 minutes. Asked Ida to seeif patient can be scheduled in OR as patient is a candidate for [email or web address]. * Telephone Encounter - Vandana Reyes OSA - 01/31/2024 3:57 PM EDT Pt needs Cystoscopy, Botox injection (in 4-6 weeks, Gio or Dewey Lyman), at least 2 weeks before knee replacement(04/08/24). UC&S 1 week before botox Please assist with scheduling, thank you documented in this encounter Plan of Treatment Upcoming Encounters Date Type Department Care Team (Late st Contact Info) Description 02/17/2024 1:00 PM EDT Office Visit Urology, [facility] [address] [place] [id number] Bam Jamison MD [address] [facility] [place] [address] Health Maintenance Due Date Last Done Comments [...] Not on filedocumented as of this encounter Care Teams Senior Safety Management Consultant Relationship Specialty Start Date End Date Sridhar Jimenez DO [address] [place] [address] PCP - General Family Medicine 09/29/19 documented as of this encounter
--- OUTSIDE RECORDS SUMMARY | 2024-04-08 13:53 | External Medical Summary | Summary of Care ---
Author Name Unknown Organization [facility] Address [address] [place] [address] Phone [phone] Care Team Providers Care Tailings Dam Laborer Name Role Phone Sridhar Jimenez DO Primary Care Provider Reason for Visit * Reason Comments Outpatient Testing Encounter Details Date Type Department Care Team (Late st Contact Info) Description 02/12/2024 11:40 AM EDT [facility] [address] [facility] [place] [phone] [facility] [address] [facility] [place] [address] Overactive bladder Allergies Active Allergy Reactions Criticality Noted Date Comments Sulfa Antibiotics 04/24/2011 documented as of this encounter (statuses as of 02/12/2024) Medications No known medicationsdocumented as of this encounter (statuses as of 02/12/2024) Active Problems Problem Noted Date Diagnosed Date Primary osteoarthritis of right knee 02/28/2023 Generalized osteoarthritis 01/29/2020 Abdominal pain, right lower quadrant Other nonspecific abnormal finding Overview: abn CT enteroclysis Gastritis and gastroduodenitis H. pylori infection Arthropathy Palpitations documented as of this encounter (statuses as of 02/12/2024) Immunizations Name Administration Dates Next Due COVID-19 [...] 02/17/2024 1:00 PM EDT Office Visit Urology, [address] [place] [address] Bam Jamison MD [address] [place] [address] Pending Results Name Type Priority Associated Diagnoses Date /Time CULTURE, URINE, QUANTITATIVE Lab Routine Overactive bladder 02/12/2024 11:33 AM EDT Health Maintenance Due Date Last Done Comments [...] of this encounter Visit Diagnoses Diagnosis Overactive bladder Hypertonicity of bladder documented in this encounter Care Teams Tailings [place] Laborer Relationship Specialty Start Date End Date Sridhar Jimenez DO [address] [place] [address] PCP - General Family Medicine 09/29/19 documented as of this encounter
--- OUTSIDE RECORDS SUMMARY | 2024-04-08 13:53 | External Medical Summary | Summary of Care ---
Author Name Unknown Organization [facility] Address [address] [place] [address] Phone [phone] Care Team Providers Care Supervisor Central Supply Name Role Phone Sridhar Jimenez DO Primary Care Provider Reason for Visit * Reason Comments Rheum Follow Up Rt knee inj Encounter Details Date Type Department Care Team (Latest Contact Info) Description 11/05/2023 2:00 PM EDT Office Visit Rheumatology [place] [address] [place] [address] Santosh Flower CRNP [address] [place] [address] Primary osteoarthritis of right knee* Allergies Active Allergy Reactions Criticality Noted Date Comments Sulfa Antibiotics 04/24/2011 documented as of this encounter (statuses as of 11/06/2023) Medications Medication Sig Dispensed Refills Start Date End Date Status Ciprofloxacin HCl 500 MG Oral Tablet (Cipro) Take 1 Tablet by mouth in the morning and 1 Tablet before bedtime. 2 Tablet 0 07/03/2023 11/05/2023 Discontinued( Medication List Clean Up) Hospital, Clinic, or Other Facility Administered Medication Ordered Dose Route Frequency Start Date End Date Status Lidocaine (PF) 2 % (PF) inj 20 mgIndications:Primary osteoarthritis of right knee 20 mg IX ONCE 11/05/2023 11/05/2023 Ended methylPREDNISolone acetate (Depo-Medrol) 40 MG/ML inj 40 mgIndications:Primary osteoarthritis of right knee 40 mg IX ONCE 11/05/2023 11/05/2023 Ended documented as of this encounter (statuses as of 11/06/2023) Active Problems Problem Noted Date Diagnosed Date Primary osteoarthritis of right knee 02/28/2023 Generalized osteoarthritis 01/29/2020 Abdominal pain, right lower quadrant Other nonspecific abnormal finding Overview: abn CT enteroclysis Gastritis and gastroduodenitis H. pylori infection Arthropathy Palpitations documented as of this encounter (statuses as of 11/06/2023) Immunizations Name Administration Dates Next Due COVID-19 mRNA, LNP-s, No Pre serve, 2-Dose Series (Moderna) 09/16/2020,08/19/2020 COVID-19, mRNA, LNP-s, PF, B ooster, 100mcg/0.5mg (Moderna) 04/27/2021 documented as of this encounter Social History Tobacco Use Types Packs/Day Years Used Date Smoking Tobacco: Never Smokeless Tobacco: Never Tobacco Cessation:Counseling Given: Not Answered Alcohol Use Standard Drinks/Week Comments Yes 0 (1 standard drink = 0.6 oz pur e alcohol) occ Sex and Gender Information Value Date Recorded Sex Assigned at Female 07/29/2022 6:19 PM EST Gender Identity Female 07/29/2022 6:19 PM EST Sexual Orientation Straight 07/29/2022 6: 19 PM EST Job Start Date Occupation Industry Not on file Not on file Not on file documented as of this encounter Last Filed Vital Signs Vital Sign Reading Time Taken Comments Blood Pressure 118/62 11/05/2023 2:19 PM EDT Pulse - - Temperature - - Respiratory Rate - - Oxygen Saturation - - Inhaled Oxygen Concentration - - Weight 100.2 kg (221 lb) 11/05/2023 2:19 PM EDT Height - - Body Mass Index - - documented in this encounter Progress Notes * Santosh Flower CRNP - 11/05/2023 2:25 PM EDTAssociated Order(s): LG Joint Inj/Arthro: R knee Post-Procedure Diagnose(s): Primary osteoarthritis of right knee Alma Thurston is a 58 year old female patient. The patient does well with local injections for the right knee. Prior to the procedure: Discussed in detail risks and benefits of joint injections. Risks include, but are not limited to, pain, bleeding, infection, local reaction, joint swelling, joint redness, and need for further injection or evaluation. Written consent on file. Patient was agreeable to procedure note below. She reports her pain is 8/10 of the right knee. Reports she is more swelling at this point. Musculoskeletal ROS: . Abnormal: joint pain . Pain scale (0-10): 8 Other ROS: . Constitutional: normal . Cardiovascular: normal . Respiratory: normal . Gastrointestinal: normal . Genitourinary: normal Reports she saw [facility] a couple of months ago and we will soon need an MRI and discuss a right knee arthroplasty. ICD-10-CM 1. Primary osteoarthritis of right knee M17.11 Past Medical History: Diagnosis Date Abdominal pain, right lower quadrant Arthropathy Diaphragmatic hernia Gastritis and gastroduodenitis H. pylori infection treated Other nonspecific abnormal finding abn CT enteroclysis Palpitations Blood pressure 118/62, weight 100.2 kg (221 lb). LG Joint Inj/Arthro: R knee on 11/05/2023 2:40 PM Indications: pain and joint swelling Details: 20 G needle, anterolateral approach Medications: (Depo-Medrol 40 mg/ml Lidocaine 2% inj 20 mg ) Aspirate: 10 mL yellow Outcome: tolerated well, no immediate complications Procedure, treatment alternatives, risks and benefits explained, specific risks discussed. Consent was given by the patient. Immediately prior to procedure a time out was called to verify the correctpatient, procedure, equipment, customer support technician and site/side marked as required. Patient was prepped and draped in the usual sterile fashion. Assessment: (M17.11) Primary osteoarthritis of right knee (primary encounter diagnosis) Plan: Lidocaine (PF) 2 % (PF) inj 20 mg, methylPREDNISolone acetate (Depo-Medrol) 40 MG/ML inj 40 mg, LG Joint Inj/Arthro: R knee Plan: 1. Discussed the above in detail with the patient. All questions were answered. 2. Meds: no changes 3. Testing: none needed 4. Follow up: 3 months 5. See procedure note above FESTUS Dietrich 11/05/2023 The patient was discussed with me. I agree with the findings and plan as documented by Santosh MORTENSENin this note. Miguel Ocampo MD Rheumatology Department documented in this encounter Nursing Notes * Harriet Asencio LPN - 11/05/2023 2:21 PM EDT Chief Complaint Patient presents with Rheum Follow Up Rt knee inj documented in this encounter Plan of Treatment Upcoming Encounters Date Type Department Care Team (Late st Contact Info) Description 01/30/2024 3:00 PM EDT Office Visit Urology Gio Alexis [address] [place] [address] Bam Jamison MD [address] [place] [address] 02/11/2024 8:00 AM EDT Office Visit Rheumatology [facility] [address] [place] [address] João Lyons PA-C [address] [place] [address] Health Maintenance Due Date Last Done Comments Lipid Panel 1963 Depression Screening 1975 HIV Screening 1978 Hepatitis C Screening 1981 DTaP,Tdap,and Td Vaccines (1 - Tdap) 1982 Mammogram 2003 Cologuard 2008 Colonoscopy 2008 Colorectal Cancer Screening 2008 Fecal Occult Blood Test 2008 Sigmoidoscopy 2008 Zoster Vaccines (1 of 2) 2013 COVID-19 Vaccine (2022-2 4 season) 2023 04/27/2021, 09/16/2020, 08/19/2020 Influenza Vaccine (FLU shot) Completed , 04/02/2018 GARDASIL-HPV IMMUNIZATION SERIES Aged Out No longer eligible b ased on patient's age to complete this topic Hepatitis B Aged Out No longer eligi ble based on patient's age to complete this [...] Not on filedocumented as of this encounter Procedures Procedure Name Priority Date/Time Associated Diagnosis Comments MA ARTHROCENTESIS ASPIR&/INJ MAJOR JT/BURSA W/O US Routine 11/05/2023 2:40 PM EDT Primary osteoarthritis of right knee documented in this encounter Results * MA ARTHROCENTESIS ASPIR&/INJ MAJOR JT/BURSA W/O US (11/05/2023 2:40 PM EDT) Narrative Miguel Ocampo MD - 11/05/2023 2:40 PM EDT Miguel Ocampo MD 11/05/2023 4:08 PM LG Joint Inj/Arthro: R knee on 11/05/2023 2:40 PM Indications: pain and joint swelling Details: 20 G needle, anterolateral approach Medications: (Depo-Medrol 40 mg/ml Lidocaine 2% inj 20 mg ) Aspirate: 10 mL yellow Outcome: tolerated well, no immediate complications Procedure, treatment alternatives, risks and benefits explained, specific risks discussed. Consent was given by the patient. Immediately prior to procedure a time out was called to verify the correct patient, procedure, equipment, customer support technician and site/side marked as required. Patient was prepped and draped in the usual sterile fashion. Santosh MORTENSEN PROCDOC FORM documented in this encounter Visit Diagnoses Diagnosis Primary osteoarthritis of right knee- Primary Primary localized osteoarthrosis, lower leg documented in this encounter Administered Medications Inactive Administered Medications - up to 3 most recent administrations Medication Order MAR Action Action Date Dose Rate Site Lidocaine (PF) 2 % (PF) inj 20 mg 20 mg, Intra-Articular, ONCE, On Sat11/05/23 at 1515, For 1 dose Given 11/05/2023 2:38 PM EDT 20 mg Knee Right methylPREDNISolone acetate (Depo-Medrol) 40 MG/ML inj 40 mg 40 mg, Intra-Articular, ONCE, On 11/05/23 at 1515, For 1 dose Given 11/05/2023 2:39 PM EDT 40 mg Knee Right documented in this encounter Care Teams Supervisor Central Supply Relationship Specialty Start Date End Date Sridhar Jimenez DO [address] [place] [address] PCP - General Family Medicine 09/29/19 documented as of this encounter
--- OUTSIDE RECORDS SUMMARY | 2024-04-08 13:53 | External Medical Summary | Summary of Care ---
Author Name Unknown Organization [facility] Address [address] [place] [address] Phone [phone] Care Team Providers Care Housekeeping Assistant Name Role Phone Deborah Arango DO Primary Care Provider Reason for Visit * Reason Comments Cystoscopy Encounter Details Date Type Department Care Team (Late st Contact Info) Description 02/17/2024 1:00 PM EDT Office Visit Urology, [facility] [address] [facility] [place] [address] Bam Jamison MD [address] [place] [address] Overactive bladder*; Urge incontinence of urine Allergies Active Allergy Reactions Criticality Noted Date Comments Sulfa Antibiotics 04/24/2011 documented as of this encounter (statuses as of 02/17/2024) Medications Medication Sig Dispensed Refills Start Date [...] of urine 500 mg OR ONCE 02/17/2024 02/18/2024 Active botulinum toxin type a (Botox) inj 10 UnitsIndications:Overactive bladder,Urge incontinence of urine 10 Units IM ONCE 02/17/2024 02/18/2024 Active documented as of this encounter (statuses as of 02/17/2024) Active Problems Problem Noted Date Diagnosed Date Primary osteoarthritis of right knee 02/28/2023 Generalized osteoarthritis 01/29/2020 Abdominal pain, right lower quadrant Other nonspecific abnormal finding Overview: abn CT enteroclysis Gastritis and gastroduodenitis H. pylori infection Arthropathy Palpitations documented as of this encounter (statuses as of 02/17/2024) Immunizations Name Administration Dates Next Due COVID-19 [...] Progress Notes * Bam Jamison MD - 02/17/2024 1:11 PM EDT [id number] PCP: DEBORAH ARANGO [address] [place] [address] [phone] Alma Thurston is a 58 year old female, who presents for intravesical Botox injection. She notes mild urgency, worse with intake of certain fluids. Past notes reviewed. Good response to Botox so far. Urinary incontinence: Present for years. Presented to [facility] November 2021. Previous trials of Detrol, [...] for the procedure. A well lubricated 16 Cambodian flexible cystoscope was introduced through the meatus [...] the procedure well without complications or difficulties. Boiler Fireman was present for entire procedure. Perioperative Cipro was provided. Impression/Plan: 58-year-old female with overactive bladder, improved with Botox. We are pleased with the patient's results. Will cover with short course of ciprofloxacin. The patient for symptom check in 4 months. Hopefully, we can space out injections further depending on symptom response in the future. Bam Jamison MD 1:11 PM 02/17/2024 documented in this encounter Nursing Notes * Beverly Chahal LPN - 02/17/2024 1:08 PM EDT Patient presents for botox. Consent signed. Patient's skin was prepped with hibiclens, and 2% lidocaine jelly was inserted into urethra for cystoscopy. Patient tolerated well. documented in this encounter Plan of Treatment Upcoming Encounters Date Type Department Care Team (Late st Contact Info) Description 07/21/2024 11:00 AM EST Office Visit Urology, [facility] [address] [facility] [place] [address] Bam Jamison MD [address] [facility] [place] [address] Scheduled Orders Name Type Priority Associated Diagnoses [...] urine Urge incontinence documented in this encounter Care Teams Housekeeping Assistant Relationship Specialty Start Date End Date Deborah Arango DO [address] [place] [address] PCP - General Family Medicine 09/29/19 documented as of this encounter
--- OUTSIDE RECORDS SUMMARY | 2024-04-08 13:53 | External Medical Summary | Summary of Care ---
Author Name Unknown Organization [facility] Address [address] [place] [address] Phone [phone] Care Team Providers Care Sap Analyst Name Role Phone eDborah Arango DO Primary Care Provider Reason for Visit * Reason Comments Cystoscopy Encounter Details Date Type Department Care Team (Late st Contact Info) Description 02/17/2024 1:00 PM EDT Office Visit Urology, [facility] [address] [facility] [place] [address] Bam Jamison MD [address] [place] [address] [...] Jamison MD - 02/17/2024 1:11 PM EDT [id number] PCP: DEBORAH ARANGO [address] [place] [address] [phone] Alma Thurston is a 58 year old [...] for the procedure. A well lubricated 16 Pakistani flexible cystoscope was introduced through the meatus [...] the procedure well without complications or difficulties. Machine Stripper was present for entire procedure. Perioperative Cipro [...] 11:00 AM EST Office Visit Urology, [facility] [address] [facility] [place] [address] Bam Jamison MD [address] [facility] [place] [address] Scheduled Orders Name Type Priority Associated Diagnoses [...] incontinence documented in this encounter Care Teams Sap Analyst Relationship Specialty Start Date End Date Deborah Arango DO [address] [place] [address] PCP - General Family Medicine 09/29/19 documented as of this encounter
--- OUTSIDE RECORDS SUMMARY | 2024-04-08 13:53 | External Medical Summary | Summary of Care ---
Author Name Unknown Organization [facility] Address [address] [place] [address] Phone [phone] Care Team Providers Care Cyber Reverse Engineer Name Role Phone Deborah Arango DO Primary Care Provider Reason for Visit * Reason Comments Cystoscopy Encounter Details Date Type Department Care Team (Late st Contact Info) Description 02/17/2024 1:00 PM EDT Office Visit Urology, [facility] [address] [facility] [place] [address] Bam Jamison MD [address] [place] [address] [...] 10 Units IM ONCE 02/17/2024 02/18/2024 Active ciprofloxacin (Cipro) tab 500 mgIndications:Overactive bladder,Urge incontinence of urine 500 mg OR ONCE 02/17/2024 02/17/2024 Ended documented as of this encounter (statuses [...] Jamison MD - 02/17/2024 1:11 PM EDT [id number] PCP: DEBORAH ARANGO [address] [place] [address] [phone] Alma Thurston is a 58 year old female, who presents for intravesical Botox injection. She notes mild urgency, worse with intake of certain fluids. Past notes reviewed. Good response to Botox so far. Urinary incontinence: Present for years. Presented to [facility] November 2021. Previous trials of Detrol, [...] for the procedure. A well lubricated 16 Egyptian flexible cystoscope was introduced through the meatus [...] the procedure well without complications or difficulties. Occupational Therapy Technician was present for entire procedure. Perioperative Cipro was provided. Impression/Plan: 58-year-old female with overactive bladder, improved with Botox. We are pleased with the patient's results. Will cover with short course of ciprofloxacin. The patient for symptom check in 4 months. Hopefully, we can space out injections further depending on symptom response in the future. Bam aJmison MD 1:11 PM 02/17/2024 documented in this [...] 07/21/2024 11:00 AM EST Office Visit Urology, [facility] 132 [facility] [place] [address] Bam Jamison MD [address] [place] [address] Scheduled Orders Name Type Priority Associated Diagnoses [...] mg documented in this encounter Care Teams Cyber Reverse Engineer Relationship Specialty Start Date End Date Thebaud, Deborah Vic, DO [address] [place] [address] PCP - General Family Medicine 09/29/19 documented as of this encounter
--- OUTSIDE RECORDS SUMMARY | 2024-04-08 13:53 | External Medical Summary ---
Author Name Unknown Address Unknown Organization [id number]:[facility] - [address] [facility] Laboratory Report Ordering Provider Test Date Status JEMIMA GRANADO 02/12/2024 11:33:03 Final Observation Date Value Abnormality Reference (Units) Status Bacteria identified in Specimen by Culture 02/12/2024 11:33:03 No significant growth Final Test: Culture, Urine, Quanti tative
Specimen Source: Urine, Clean Catch
Specimen Type: Urine
Specimen Date: 02/12/2024 1133
Result Date: 02/14/2024 0836
Result Status: Final result
Resulting Lab: [facility]
[address]
[place] [id number]

CULTURE

No significant growth

null Performing Location [facility] - [address] [place] [id number]
--- OUTSIDE RECORDS SUMMARY | 2024-04-08 13:53 | External Medical Summary | Summary of Care ---
Author Name Unknown Organization [facility] Address [address] [place] [address] Phone [phone] Care Team Providers Care Pattern Drafter Name Role Phone Sridhar Jimenez DO Primary Care Provider Reason for Visit * Reason Comments Rheum Follow Up Rt knee inj Encounter Details Date Type Department Care Team (Latest Contact Info) Description 11/05/2023 2:00 PM EDT Office Visit Rheumatology [place] [id number] [place] [address] Santosh Flower CRNP [address] [place] [address] Primary osteoarthritis of right knee* Allergies Active Allergy Reactions Criticality Noted Date Comments Sulfa Antibiotics 04/24/2011 documented as of this encounter (statuses as of 11/05/2023) Medications Medication Sig Dispensed Refills Start Date [...] as of this encounter (statuses as of 11/05/2023) Active Problems Problem Noted Date Diagnosed Date Primary osteoarthritis of right knee 02/28/2023 Generalized osteoarthritis 01/29/2020 Abdominal pain, right lower quadrant Other nonspecific abnormal finding Overview: abn CT enteroclysis Gastritis and gastroduodenitis H. pylori infection Arthropathy Palpitations documented as of this encounter (statuses as of 11/05/2023) Immunizations Name Administration Dates Next Due COVID-19 [...] normal . Genitourinary: normal Reports she saw [facility] a couple of months ago and [...] called to verify the correctpatient, procedure, equipment, sales support administrator and site/side marked as required. Patient was [...] [address] [place] [address] [place] [address] Bam Jamison MD [address] [place] [address] [place] [address] 02/11/2024 8:00 AM EDT Office Visit Rheumatology [facility] [address] [place] [address] João Lyons PA-C [address] [place] [address] Health Maintenance Due Date Last Done Comments [...] Procedure Name Priority Date/Time Associated Diagnosis Comments UT ARTHROCENTESIS ASPIR&/INJ MAJOR JT/BURSA W/O US Routine 11/05/2023 2:40 PM EDT Primary osteoarthritis of right knee documented in this encounter Results * UT ARTHROCENTESIS ASPIR&/INJ MAJOR JT/BURSA W/O US (11/05/2023 [...] to verify the correct patient, procedure, equipment, sales support administrator and site/side marked as required. Patient was [...] Right documented in this encounter Care Teams Pattern Drafter Relationship Specialty Start Date End Date Sridhar Jimenez DO [address] [place] [address] PCP - General Family Medicine 09/29/19 documented as of this encounter
--- OUTSIDE RECORDS SUMMARY | 2024-04-08 13:53 | External Medical Summary | Summary of Care ---
Author Name Unknown Organization [facility] Address [address] [facility] [address] Phone [phone] Care Team Providers Care Rn Clinical Resource Name Role Phone Sridhar Jimenez DO Primary Care Provider Encounter Details Date Type Department Care Team (Late st Contact Info) Description 02/10/2024 Telephone Urology, [facility] [address] [facility] [place] [address] Bam Jamison MD [address] [place] [address] Allergies Active Allergy Reactions Criticality Noted Date Comments Sulfa Antibiotics 04/24/2011 documented as of this encounter (statuses as of 02/10/2024) Medications No known medicationsdocumented as of this encounter (statuses as of 02/10/2024) Active Problems Problem Noted Date Diagnosed Date Primary osteoarthritis of right knee 02/28/2023 Generalized osteoarthritis 01/29/2020 Abdominal pain, right lower quadrant Other nonspecific abnormal finding Overview: abn CT enteroclysis Gastritis and gastroduodenitis H. pylori infection Arthropathy Palpitations documented as of this encounter (statuses as of 02/10/2024) Immunizations Name Administration Dates Next Due COVID-19 [...] encounter Miscellaneous Notes * Telephone Encounter - Beverly Chahal LPN - 02/10/2024 11:22 AM EDT Spoke with patient, aware to have urine sample done in the next few days. Aware to have no aspirin or NSAIDS until after procedure. documented in this encounter Plan of Treatment Upcoming Encounters Date Type Department Care Team (Late st Contact Info) Description 02/17/2024 1:00 PM EDT Office Visit Urology, [facility] [address] [facility] [place] [address] Bam Jamison MD [address] [place] [address] Scheduled Orders Name Type Priority Associated Diagnoses Orde r Schedule CULTURE, URINE, QUANTITATIVE Lab Routine Overactive bladder Expected: 02/10/2024, Expires: 02/09/2025 Health Maintenance Due Date Last Done Comments [...] Diagnosis Overactive bladder- Primary Hypertonicity of bladder documented in this encounter Care Teams Rn Clinical Resource Relationship Specialty Start Date End Date Sridhar Jimenez DO [address] [place] [address] PCP - General Family Medicine 09/29/19 documented as of this encounter
[2024-04-08] MEDS: SODIUM CHLORIDE 0.9% 1,000 ML IV SCH (14:10)
[2024-04-08] MEDS: oxyCODONE HCL IR 5 MG TAB (IMMEDIATE RELEASE) PO PRN (16:05)
[2024-04-08] MEDS: TRANEXAMIC ACID / 0.7% NACL 1,000 MG/100 ML BAG IV SCH (16:05)
--- NOTE | 2024-04-08 17:28 | Operative Report ---
Post Operative Report Pre & Post Diagnosis Operation Date: 04/08/24 09:00 Pre-Op Diagnosis: Right Knee Osteoarthritis Post-Op Diagnosis: Right Knee Osteoarthritis I identified the patient and participated in the time-out.: Yes Procedure Operation Date: 04/08/24 09:00 Actual Procedures p Right Total Knee Arthroplasty(Right), jeimy and Acticoat superficial wound VAC application- Brodie Borden MD Surgeon Brodie Borden MD Cardiopulmonary Supervisor Juancarlos [place] Estimated Blood Loss 5 Findings Consistent with Post-Op Diagnosis Specimens Bone cuts Drains 2 Hemovac Anesthesia Type MAC Spinal Regional Complications none Disposition Disposition: Recovery Room Indications 59-year-old female history of chronic right knee pain failed conservative management. She has had multiple aspiration injections of her knee with chronic recurrent synovitis. She has had previous arthroscopic surgery with lateral release and there were areas of grade 4 osteoarthritic changes in the patellofemoral joint noted at the time of surgery. Radiographs demonstrate progressive osteoarthritis not 100% [id number] but more advanced patellofemoral arthritis in the tibiofemoral joints with valgus alignment of her knee. Patient history of successful left knee replacement now wants proceed with right knee replacement at this time. Description of Procedure The patient was taken to the operating room and anesthetized under spinal MAC regional block. Patient was placed supine on the the operating table. A pneumatic tourniquet was placed about the right obese upper thigh. The knee exam demonstrated increased ligamentous laxity with about 15 degrees of hyperextension flexion to 145 degrees +2 ligamentous laxity medial lateral with varus valgus stress. Patient had a lax lateral retinaculum and large knee effusion. The involved leg was elevated exsanguinated with Esmarch bandage and the pneumatic tourniquet was raised to 350 millimeters mercury. A longitudinal incision was made across the anterior knee. Skin flaps were elevated. An incision was made into the medial retinaculum and extended up into the mid third of the quadriceps tendon and extended down to the tibial tubercle. Intra- articular findings demonstrated she had areas of grade 4 osteoarthritis in the patellofemoral joint on the medial femoral condyle lateral femoral condyle. There are areas of deep chondral damage down to bone in all these areas but were more focally located and not global. Her ACL and PCL were intact.. The knee was exposed by excising cruciate ligaments and menisci. A portion of the infrapatellar fat pad was resected for visualization. The fat pad over the anterior femur at the upper aspect of the articular surface was resected for placement of the component in that area. A subperiosteal peel lateral release was performed around the patella. The [employer] Unb[employer] total knee arthroplasty system was utilized for the procedure. The custom femoral cutting guide was pinned in position. The distal femoral cut was made. The size 4, 4 in 1 cutting block was placed. The anterior posterior and chamfer cuts were made. The knee was extended and a free hand cut technique was performed to the patella. The patella width was measured and the width was reproduced using a 32 mm symmetrical patella component. The excess lateral facet was beveled off to prevent any impingement. 3 drill holes are made for the patella component pegs. The tibia was then subluxed. The custom tibial cutting block was pinned in position and the proximal tibial cut was made with the oscillating saw. Flexion and extension gaps were balanced. No releases were required. The size 2 tibial trial was externally rotated in line with the tibial tubercle and pinned in position. The punch for the stem was used. The femoral trial was inserted and centered the notch cutting devices were used and the collet was placed. Tibial trials were used for the insert. The size 9 posterior stabilized trial gave balanced ligaments through full range of motion. Patella tracking was assessed with range of motion. The patella tracked centrally. The trials were removed. The Orthomix anesthetic cocktail was injected per protocol. The cut bone surfaces and soft tissue were copiously irrigated with pulsatile lavage saline solution. The final components were cemented with Refobacin cement. The final components were [employer] size 4 right femoral component, size 2 right tibial component, 9 posterior stabilized tibial polyethylene insert and a 32 mm symmetrical patella. Xperience irrigation was placed over metal tray prior to polyethyle insertion. After the cement cured, the knee was then copiously irrigated with pulsatile lavage Xperience solution. 2 drains were brought out laterally connected to Hemovac. The quadriceps tendon and medial retinaculum were closed with #2 FiberWire sutures distal quadriceps tendon and medial retinacular area and 1 suture over the level of the tibial polyethylene and 1 at the apex of the closure superiorly followed by an 0 strata fix running locking suture down across the medial retinaculum and the distal retinaculum below the patella close interrupted #1 Vicryl sutures.. The knee was taken through full range of motion and repair was secure. Knee range of motion was 0 through 130 degrees. the subcutaneous tissues were closed with 2-0 Vicryl sutures. The skin was closed with surgical gayla. A jeimy and Acticoat superficial wound VAC was applied. The tourniquet was let down and the patient had good capillary refill to the extremity. The patient tolerated the procedure well. My physician transportation assistant Juancarlos BELLA participated as data control assistant and was integral part in all aspects of the procedure including prepping, draping, leg positioning, soft tissue retraction, instrument management and assisted in the closure , wound VAC application and will participate in postoperative care the patient. I attest to the content of the Intraoperative Record and any orders documented therein. Any exceptions are noted below.
[2024-04-08] MEDS: ASPIRIN 81 MG ECTAB PO SCH (19:57)
[2024-04-08] MEDS: SENNA 8.6 MG TAB PO SCH (19:58)
[2024-04-08] MEDS: DOCUSATE SODIUM 100 MG CAP PO SCH (19:58)
[2024-04-09] MEDS ORDERED: Nursing to Pharmacy Communication SCH (06:15)
[2024-04-09 07:04] LABS: Hemoglobin 10.5 g/dl (12.0-16.0); Mean Corpuscular Hemoglobin 29.9 pg (25.0-34.0); Mean Corpuscular Hgb Conc 33.9 g/dL (32.0-36.0); Mean Corpuscular Volume 88.3 fL (80.0-100.0); Mean Platelet Volume 10.3 fL (9.4-12.4); Platelet Count 176 K/uL (130-400); RDW Standard Deviation 38.7 fL (36.4-46.3); Red Blood Count 3.51 M/uL (4.20-5.40); White Blood Count 7.35 K/ul (4.8-10.8)
[2024-04-09 07:50] VITALS: BP 94/64; PULSE 60; RESP 18; TEMP 98.1; O2SAT 97
--- NOTE | 2024-04-09 07:58 | Orthopedic Progress Note ---
Date of Service April 09, 2024 Assessment & Plan (1) Osteoarthritis of right knee: Plan: Postop day 1 total knee replacement doing well. Had 120 cc drainage so needs to keep Hemovac in place. Discussed discharge planning and preference would be for home PT for 2 weeks and then outpatient PT. Drain can be kept in place and home nursing can pull drain tomorrow. Patient can be kept on cefadroxil postop. PT OT while in hospital. Discharge if home nursing can be set up today. Right knee osteoarthritis with failed conservative management. Radiographs do not show typical clzt-gh-zvyz osteoarthritis but she did have previous arthroscopic surgery demonstrated grade 4 patellofemoral osteoarthritis. She has had extensive conservative management with multiple aspiration and injection of steroids and continues to have recurrent effusion and chronic pain. Patient had good success with similar condition on her left knee and has some mild chronic synovitis but good pain relief and function with a left knee replacement. Patient wants proceed with the right total knee replacement at this time. (2) Knee effusion, right: Admission and Anticipated Discharge Date Admission Date: April 08, 2024 Subjective Pain tolerable minimal pain. Review of Systems Review of Systems: Feeling well Physical Exam Musculoskeletal: Circulation sensorimotor exam intact patient can do an independent straight leg raise. Dressings dry and intact. Right lower extremity Results & Data Vital Signs (Past 12 Hours) Vital Signs Temp Pulse Pulse Resp BP Pulse Ox O2 Del Method 04/09/24 07:49 36.7 C 60 18 94/64 L 97 Room Air 04/09/24 03:13 37 C 69 96/60 L 99 Room Air 04/08/24 23:16 37.2 C 72 98/62 L 96 Room Air Diagnostic Findings X-rays well aligned total knee replacement (1) Osteoarthritis of right knee Osteoarthritis type: primary Qualified Code(s): M17.11 - Unilateral primary osteoarthritis, right knee
[2024-04-09] MEDS: MULTIVITAMIN TAB PO SCH (08:14)
[2024-04-09 08:57] LABS: Calcium 8.2 mg/dl (8.6-10.3); Potassium 4.1 mmol/L (3.5-5.1)
[2024-04-09 09:02] LABS: BUN Creatinine Ratio 18.2 (10-20); Creatinine Clr Calc Pharmacy 86.9 ml/min; Est GFR (African American) 96.6 ml/min; Est GFR (Non-African American) 83.3 ml/min
--- NOTE | 2024-04-28 13:38 | Discharge Summary ---
Date of Service April 28, 2024 Admission HPI Per Admitting Provider Patient denies headaches, sweats, fevers, chills, double vision, blurred vision, cough, sore throat, dysphagia, chest pain, sob, wheezing, n/v/d/c, numbness, tingling, fatigue, urinary symptoms, mood disorders. ROS positive for irregular heartbeat, arthritis. Principal Diagnosis Right knee osteoarthritis Discharge Exam Constitutional WD/WN, vitals as above Musculoskeletal Knee: + surgical incision (Right knee: Dressing C/D/I); no skin erythema and no ecchymosis Neurologic normal touch/pain/proprioception Psychiatric A+Ox3, euthymic affect Speech: normal rate/rhythm/volume of speech Discharge Data Allergies Allergy/AdvReac Type Severity Reaction Status Date / Time Sulfa (Sulfonamide Allergy Unknown Fever, Verified 04/08/24 07:39 Antibiotics) hives, abnormal LFTs Procedures Performed Operation Date: 04/08/24 09:00 Actual Procedures p Right Total Knee Arthroplasty(Right) - Brodie Borden MD Ordered Studies 04/08/24 05:00 US - OR guided needle placemen Routine 04/08/24 11:18 US - OR guided needle placemen Stat Hospital Course (1) Osteoarthritis of right knee: Postop day 1 total knee replacement doing well. Had 120 cc drainage so needs to keep Hemovac in place. Discussed discharge planning and preference would be for home PT for 2 weeks and then outpatient PT. Drain can be kept in place and home nursing can pull drain tomorrow. Patient can be kept on cefadroxil postop. PT OT while in hospital. Discharge if home nursing can be set up today. Right knee osteoarthritis with failed conservative management. Radiographs do not show typical twvi-ib-fgvd osteoarthritis but she did have previous arthroscopic surgery demonstrated grade 4 patellofemoral osteoarthritis. She has had extensive conservative management with multiple aspiration and injection of steroids and continues to have recurrent effusion and chronic pain. Patient had good success with similar condition on her left knee and has some mild chronic synovitis but good pain relief and function with a left knee replacement. Patient wants proceed with the right total knee replacement at t his time. Total Time Total Time Spent Total Time Spent (In Minutes): 20 Discharge Plan Discharge Items Patient Disposition: Home - Home Health Services Reason For Visit: Right Knee Osteoarthritis Discharge Diagnosis: Right knee osteoarthritis Activity: Per Instructions section Non-emergency contact: Surgeon Call non-emergency contact if: your pain is not controlled, your pain is worsening and your temperature is above 101 Follow-up/Referrals: Sridhar Jimenez DO [Primary Care Provider] - Diet: Regular Addtl Attending Provider Instructions: ACTIVITY RECOMMENDATIONS: SELF CARE INSTRUCTIONS AFTER TOTAL KNEE REPLACEMENT A. You may need to continue a physical therapy program after discharge from the hospital. There are several options available to you. Your doctor will assist you in selecting the best one for you. 1. An out-patient facility 3 times a week for therapy. 2. Home therapy for 1 to 2 weeks with outpatient therapy to follow. 3. Continue working on all exercises taught by physical therapy three times a day for 20 minutes on non-therapy days. Your goals should be to increase the bending of your knee to 90 degrees and beyond and to fully straighten your knee. Ice and elevate knee after exercise. B. Weight as tolerated with a walker or as instructed by your physician. C. It is okay to shower if minimal to no drainage from incision. No Baths. Do not soak wound. D. Make walking a part of your daily routine. Be up as much as comfortable with rest periods throughout the day. Rest with leg elevation is very important. Use the ice wrap frequently for the first 3-4 weeks. E. There are no restrictions on activities. You may ride in a car, shop, participate in harvesting supervisor and all social activities. F. Wear the long elastic stockings (JOAN hose) 20 hours a day for one month after surgery. They can be removed several times a day for laundering and when showering. G. CARLIN dressing: You have a CARLIN dressing on your surgical wound. It will remain in place for 7 days from surgery. You will be provided with a booklet with the do's and don'ts with the dressing in place. After 7 days, the dressing may be removed. If there is drainage from the surgical incision, you may cover the wound with dry dressings H. Home health will remove your Hemovac drain on postoperative day #2, 04/10/2024. SPECIAL CARE INSTRUCTIONS: VERY IMPORTANT TO READ AND REVIEW A. Take Coumadin, Xarelto, Aspirin or Lovenox (blood thinning medications) as directed by your doctor. If on Coumadin, have a pro-time (blood test) drawn according to your doctor's instructions. This will tell the doctor how well the Coumadin is thinning your blood. B. There are a few signs you need to watch for after you are home. Call [facility] if you notice any of the followin. Increased severe knee pain. Some pain is expected especially when you exercise. 2. Increased swelling in your leg or knee; pain or swelling of the calf muscle in either lower leg. 3. Any redness or fluid drainage from the incision. 4. Shortness of breath or chest pain. 5. A Temperature of 101 degrees F or greater. C. Please call [facility] at if you have any concerns or questions about your operation or recovery. The doctor or his nurse will return your call promptly. D. You must take antibiotics before dental work, bladder, bowel or other surgery. Your doctor will provide you with a permanent care to carry describing this precaution. FOLLOW UP VISIT: If appointment is not already scheduled: Please call [facility] to make a follow-up appointment for 12-14 days after your surgery at . Pending Studies at Discharge: No Stand-Alone Forms: My TxtFeedback, Smoking Cessation Medications and DC Order Prescriptions: New acetaminophen [Tylenol Extra Strength] 500 mg Tablet 1,000 mg PO Q8 Qty: 90 0RF aspirin 81 mg Tablet,Delayed Release (Dr/Ec) 81 mg PO BID Qty: 60 0RF oxycodone 5 mg Tablet 5 mg PO Q4H PRN (Reason: pain) Qty: 20 0RF cefadroxil 500 mg capsule 500 mg PO Q12H Qty: 28 0RF Continued multivitamin Tablet 1 tab PO DAILY Discontinued acetaminophen [Tylenol] 325 mg Tablet 325 mg PO QID PRN (Reason: Pain) Krames/Other Patient Handouts: Taking NSAIDs Safely, Osteoarthritis Knee Admission Data Admit Date/Time: 04/08/24 10:31 Attending Provider: Brodie Borden Admit Provider: Brodie Borden Primary Care Provider: Sridhar Jimenez Other Interventions: Discharge Summary Assessment (RN) Last Done: 04/09/24 11:17
== END 2024-04-09 13:31 | disposition home health service (06) ==
LOC: ASU 07:09 → 3W 07:09